=== PATIENT | female | born 1940 | race American Indian/Alaskan Native ===

== ENCOUNTER 2016-05-18 08:55 | Emergency (ER) | payer MEDICARE ==
--- NOTE | 2016-05-18 11:01 | Emergency Department Report ---
Chief Complaint: Headache Stated Complaint: POSS STROKE Time Seen by Provider: 05/18/16 09:58 - HPI History of Present Illness: Patient states that she had intermittent right sided BOWDEN over the last 2 weeks, worsened yesterday; denies N/V, photosensitivity and recent head injuries; H/O CVA 2014, not on blood thinners - ROS Review of Systems: Negative except those stated in HPI - Exam Vital Signs: Vital Signs 05/18/16 09:30 Temperature 97.5 F L Pulse Rate 64 Respiratory 16 Rate Blood Pressure 188/79 O2 Sat by Pulse 100 Oximetry Physical Exam: Left sided facial droop, residual PERRLA, EOMI bilaterallly; mild weakness in left arm, residual MSE screening note: Focused history and physical exam performed. Due to findings the following was ordered: CBC, CMP, CT head, Patient to be seen in Main ED ED Disposition for MSE Condition: Stable
--- NOTE | 2016-05-18 11:23 | Cat Scan Report ---
CT scan of head without contrast: Compared to 11/17/15. History: Headache. History of stroke. Findings: Ventricles are normal in size and midline in location. Focal area of low attenuation in the right basal ganglia with dilatation of the adjacent lateral ventricle suggestive of chronic ischemia. Ill-defined focal area of low attenuation in the right posterior temporal region. Measures approximately 4 cm in diameter. Moderate volume loss. No significant interval change. No evidence of hemorrhage. No extra-axial fluid collection. Normal sinuses and mastoid air cells. Impression: Chronic ischemic changes. No acute intracranial abnormality.No hemorrhage.
[2016-05-18 11:41] LABS: Hematocrit 36.9 % (30.3-42.9); Hemoglobin 11.9 gm/dl (10.1-14.3); Mean Corpuscular HGB Conc 32 % (30-34); Mean Corpuscular Hemoglobin 28 pg (28-32); Mean Corpuscular Volume 86 fl (79-97); Platelet Count 258 K/mm3 (140-440); Red Cell Distribution Width 13.7 % (13.2-15.2); White Blood Count 5.7 K/mm3 (4.5-11.0)
[2016-05-18 12:50] LABS: Alanine Aminotransferase 7 units/L (7-56); Albumin 4.1 g/dL (3.9-5); Albumin/Globulin Ratio 1.5 %; Alkaline Phosphatase 97 units/L (35-129); Anion Gap 17 mmol/L; Bilirubin,Total 0.4 mg/dL (0.1-1.2); Blood Urea Nitrogen 12 mg/dL (7-17); Calcium 9.4 mg/dL (8.4-10.2); Carbon Dioxide 27 mmol/L (22-30); Chloride 103.8 mmol/L (98-107); Glucose 111 mg/dL (65-100); Potassium 3.5 mmol/L (3.6-5.0); Sodium 144 mmol/L (137-145); Total Protein 6.9 g/dL (6.3-8.2)
[2016-05-18] MEDS ORDERED: APRESOLINE ONE (15:43)
[2016-05-18] MEDS ORDERED: APRESOLINE IV ONE (16:01)
[2016-05-18] MEDS ORDERED: REGLAN IV ONE (16:51)
[2016-05-18] MEDS ORDERED: TORADOL IV ONE (16:52)
[2016-05-18] MEDS ORDERED: BENADRYL IV ONE (16:52)
--- NOTE | 2016-05-18 17:00 | Emergency Department Report ---
HPI - General Chief Complaint: Headache Time Seen by Provider: 05/18/16 15:54 - HPI HPI: The patient is a 75-year-old female with a history of hypertension, whom presents for evaluation of headache. The patient reports constantly for the past 2 days, pounding in quality, 10/10 in severity, exacerbated by turning of the head. The patient denies trauma to the head, fever, head injury, neck pain, neck stiffness, vision or hearing changes, smell or taste changes, paresthesias , facial drooping, slurred speech, seizure-like activity, urine or bowel incontinence or retention, or other focal neurological deficit. ED Past Medical Hx - Past Medical History Previous Medical History?: Yes Hx Hypertension: Yes (x 15 years) Hx Diabetes: Yes (x 12 years) Hx Arthritis: Yes Hx Headaches / Migraines: Yes Hx Seizures: Yes (09/2014 caused by stroke) - Surgical History Past Surgical History?: Yes Hx Coronary Stent: Yes (between 8241-5065) Hx Cholecystectomy: Yes - Social History Smoking Status: Never Smoker Substance Use Type: None - Medications Home Medications: Home Medications Medication Instructions Recorded Confirmed Last Taken Type AtorvaSTATin [Lipitor] 40 mg PO BID 10/20/15 12/21/15 12/21/15 History Brimonidine 0.15% [Alphagan P 1 drops OP Q8H 10/20/15 12/21/15 12/21/15 History 0.15%] Furosemide 20 mg PO BID 10/20/15 12/21/15 12/21/15 History Insulin Aspart [NovoLOG 100 0 unit SQ AC PRN 10/20/15 12/21/15 11/16/15 History UNITS/ML VIAL] Lisinopril 40 mg PO QDAY 10/20/15 12/21/15 12/22/15 06:00 History Nebivolol (Nf) [Bystolic (Nf)] 5 mg PO QDAY 10/20/15 12/21/15 12/22/15 06:00 History Omeprazole (Nf) [PriLOSEC (Nf)] 20 mg PO QDAY 10/20/15 12/21/15 12/21/15 History hydrALAZINE [Apresoline TAB] 25 mg PO BID 10/20/15 12/21/15 12/22/15 06:00 History levETIRAcetam [Keppra TAB] 500 mg PO BID 10/20/15 12/22/15 12/22/15 06:00 History Potassium Chloride 20 meq PO DAILY #30 tablet.er 11/19/15 12/21/15 12/21/15 Rx Sitagliptin Phosphate [Januvia] 1 tab PO DAILY 12/22/15 12/22/15 12/21/15 History Acetaminophen/Codeine [Tylenol #3] 1 tab PO Q6H PRN #15 tab 05/18/16 Unknown Rx ED Review of Systems ROS: Stated complaint: POSS STROKE Other details as noted in HPI Constitutional: denies: fever ENT: denies: throat or neck pain Respiratory: denies: cough, shortness of breath Cardiovascular: denies: chest pain Endocrine: denies unexplained weight loss or gain Gastrointestinal: denies: abdominal pain, nausea Genitourinary: denies: dysuria Musculoskeletal: denies: leg swelling Skin: denies: rash Neurological: reports headache Hematological/Lymphatic: denies: easy bleeding or easy bruising Psych: denies sadness or hopelessness Physical Exam - Physical Exam Vital Signs: Vital Signs 05/18/16 05/18/16 05/18/16 09:30 15:24 15:30 Temperature 97.5 F L Pulse Rate 64 66 73 Respiratory 16 15 16 Rate Blood Pressure 188/79 212/77 Blood Pressure [Left] O2 Sat by Pulse 100 100 100 Oximetry 05/18/16 05/18/16 05/18/16 15:40 15:50 15:58 Temperature 98.3 F Pulse Rate 65 66 67 Respiratory 11 L 19 17 Rate Blood Pressure 212/77 212/77 Blood Pressure 212/77 [Left] O2 Sat by Pulse 100 100 98 Oximetry 05/18/16 05/18/16 05/18/16 15:59 16:00 16:10 Temperature Pulse Rate 76 74 Respiratory 17 19 13 Rate Blood Pressure 185/70 185/70 Blood Pressure [Left] O2 Sat by Pulse 98 100 100 Oximetry 05/18/16 05/18/16 05/18/16 16:20 16:30 16:40 Temperature Pulse Rate 80 91 H 86 Respiratory 21 18 16 Rate Blood Pressure 185/60 185/80 185/80 Blood Pressure [Left] O2 Sat by Pulse 100 99 100 Oximetry Physical Exam: General: well-nourished, well-developed, no acute distress Head: Normocephalic, atraumatic Eyes: normal sclera, PERRL, EOM intact, no nystagmus ENT: Mucous membranes are pink and moist Neck: trachea midline, neck supple, No neck stiffness, no cervical adenopathy Respiratory: Breath sounds equal bilaterally, no wheezing, rales, or rhonchi Cardio: S1 and S2 present, no murmurs, rubs, gallops, capillary refill is brisk Abdomen: Normoactive bowel sounds, soft abdomen, no rigidity, no guarding or rebound tenderness Musc: No pitting edema Skin: No rash Neuro: alert oriented x4, normal cognition, speech normal, no facial drooping, no uvula or tongue deviation on protrusion, no deficit with rotation of neck or shoulder shrug, no obvious gross motor deficit in the upper or lower extremities with flexion or extension at the shoulder, elbow, wrist, hip, knee, or ankle bilaterally, no obvious gross sensation deficit, 2+ symmetric reflexes on DTR testing, no coordination deficit with [id number] or [id number] testing, Babinski downgoing Psych: Normal affect ED Course Vital Signs 05/18/16 05/18/16 05/18/16 09:30 15:24 15:30 Temperature 97.5 F L Pulse Rate 64 66 73 Respiratory 16 15 16 Rate Blood Pressure 188/79 212/77 Blood Pressure [Left] O2 Sat by Pulse 100 100 100 Oximetry 05/18/16 05/18/16 05/18/16 15:40 15:50 15:58 Temperature 98.3 F Pulse Rate 65 66 67 Respiratory 11 L 19 17 Rate Blood Pressure 212/77 212/77 Blood Pressure 212/77 [Left] O2 Sat by Pulse 100 100 98 Oximetry 05/18/16 05/18/16 05/18/16 15:59 16:00 16:10 Temperature Pulse Rate 76 74 Respiratory 17 19 13 Rate Blood Pressure 185/70 185/70 Blood Pressure [Left] O2 Sat by Pulse 98 100 100 Oximetry 05/18/16 05/18/16 05/18/16 16:20 16:30 16:40 Temperature Pulse Rate 80 91 H 86 Respiratory 21 18 16 Rate Blood Pressure 185/60 185/80 185/80 Blood Pressure [Left] O2 Sat by Pulse 100 99 100 Oximetry ED Medical Decision Making - Lab Data Result diagrams: 05/18/16 11:30 05/18/16 11:30 - Medical Decision Making The patient was seen and examined by myself. The patient is placed on a counsel and continuous pulse ox. On initial evaluation, the patient was found to be in no distress. Evaluation orders were placed. IV access is established and the patient is given IV Reglan, Benadryl, and IV Toradol for her pain. She declined IV fluids for treatment of dehydration. Lab results were not concerning. CT scan of the head is negative for acute intracranial disease process. The patient was reevaluated and reported that their symptoms were markedly improved. The patient is stable for discharge with outpatient follow-up. The patient is given follow-up and return instructions. The patient expressed understanding and agreed with the plan. The patient is discharged in stable condition. Critical care attestation.: If time is entered above; I have spent that time in minutes in the direct care of this critically ill patient, excluding procedure time. ED Disposition Clinical Impression: Acute non intractable tension-type headache, Dehydration Disposition: DISCHARGED TO HOME OR SELFCARE Is pt being admited?: No Does the pt Need Aspirin: No Condition: Stable Instructions: Migraine Headache (ED), Acute Headache (ED) Referrals: UJS CRUZ MD [Primary Care Provider] - 3-5 Days Time of Disposition: 16:53
[2016-05-18 17:28] VITALS: BP 166/66
== END 2016-05-18 17:30 | disposition home or self-care (01) ==
LOC: ED 08:55
DX: G44.209 Tension-type headache, unspecified, not intractable (principal); E86.0 Dehydration; I10 Essential (primary) hypertension; E11.9 Type 2 diabetes mellitus without complications; M19.90 Unspecified osteoarthritis, unspecified site; R56.9 Unspecified convulsions; Z79.4 Long term (current) use of insulin
CPT/HCPCS: 36415; 70450; 80053; 85027; 93005; 93010; 96374; 96375; 99284; J0360; J1200; J1885; J2765

== ENCOUNTER 2017-02-04 12:39 | Emergency (ER) | payer MEDICARE ==
[2017-02-04 15:00] LABS: Basophils % (Auto) 1.3 % (0.0-1.8); Eosinophils % (Auto) 1.4 % (0.0-4.3); Hematocrit 35.7 % (30.3-42.9); Hemoglobin 11.6 gm/dl (10.1-14.3); Mean Corpuscular HGB Conc 33 % (30-34); Mean Corpuscular Hemoglobin 27 pg (28-32); Mean Corpuscular Volume 84 fl (79-97); Platelet Count 253 K/mm3 (140-440); Red Blood Count 4.25 M/mm3 (3.65-5.03); Red Cell Distribution Width 13.3 % (13.2-15.2); White Blood Count 7.8 K/mm3 (4.5-11.0)
[2017-02-04 15:04] LABS: Bilirubin,Urine NEG (Negative); Blood,Urine NEG (Negative); Ketones,Urine NEG (Negative); Leukocyte Esterase,Urine NEG (Negative); Nitrite,Urine NEG (Negative); Protein,Urine <15 mg/dL mg/dL (Negative); Urobilinogen,Urine < 2.0 mg/dL (<2.0)
[2017-02-04 15:15] LABS: Anion Gap 15 mmol/L; BUN/Creatinine Ratio 15; Blood Urea Nitrogen 9 mg/dL (7-17); Carbon Dioxide 28 mmol/L (22-30); Chloride 99.6 mmol/L (98-107); Glucose 285 mg/dL (65-100); Potassium 3.7 mmol/L (3.6-5.0); Sodium 139 mmol/L (137-145)
--- NOTE | 2017-02-04 17:26 | Emergency Department Report ---
ED General Adult HPI - General Chief complaint: Hyperglycemia Stated complaint: HBP/HBS Source: patient, EMS Mode of arrival: Stretcher Limitations: No Limitations - History of Present Illness Initial comments: Pt is a 76 yo female sent here for elevated blood glucose that the pt states was checked twice. Pt states initially, it was 500 then rechecked and found to be 600. Pt denied any complaints. Pt states she was sent here due to here due to the blood sugar. pt states that she had been eating extra sweets and drinking Sprite over the . - Related Data Home Medications Medication Instructions Recorded Confirmed Last Taken AtorvaSTATin [Lipitor] 40 mg PO DAILY 10/20/15 02/04/17 12/21/15 Furosemide 20 mg PO DAILY 10/20/15 02/04/17 12/21/15 Nebivolol (Nf) [Bystolic (Nf)] 5 mg PO QDAY 10/20/15 02/04/17 12/22/15 06:00 hydrALAZINE [Apresoline TAB] 100 mg PO BID 10/20/15 02/04/17 12/22/15 06:00 Sitagliptin Phosphate [Januvia] 1 tab PO DAILY 12/22/15 02/04/17 12/21/15 Clopidogrel [Plavix] 75 mg PO DAILY 02/04/17 02/04/17 Unknown Fluticasone [Flonase] 1 spray INTRANASAL DAILY 02/04/17 02/04/17 Unknown HYDROcodone/ACETAMINOPHEN 1 tab PO BID PRN 02/04/17 02/04/17 Unknown [Hydrocodon-Acetaminophen 5-325] Loratadine 10 mg PO DAILY 02/04/17 02/04/17 Unknown Ranitidine HCl [Acid Control] 150 mg PO BID 02/04/17 02/04/17 Unknown Valsartan [Diovan] 320 mg PO DAILY 02/04/17 02/04/17 Unknown glipiZIDE [glipiZIDE ER] 10 mg PO QHS 02/04/17 02/04/17 Unknown Previous Rx's Medication Instructions Recorded Last Taken Type Potassium Chloride 20 meq PO DAILY #30 tablet.er 11/19/15 12/21/15 Rx Allergies Allergy/AdvReac Type Severity Reaction Status Date / Time No Known Allergies Allergy Unverified 02/04/17 14:03 ED Review of Systems ROS: Stated complaint: HBP/HBS Other details as noted in HPI ED Past Medical Hx - Past Medical History Previous Medical History?: Yes Hx Hypertension: Yes (x 15 years) Hx CVA: Yes Hx Diabetes: Yes (x 12 years) Hx Arthritis: Yes Hx Headaches / Migraines: Yes Hx Seizures: Yes (09/2014 caused by stroke) - Surgical History Past Surgical History?: Yes Hx Coronary Stent: Yes (between 3860-4361) Hx Cholecystectomy: Yes - Social History Smoking Status: Never Smoker Substance Use Type: None - Medications Home Medications: Home Medications Medication Instructions Recorded Confirmed Last Taken Type AtorvaSTATin [Lipitor] 40 mg PO DAILY 10/20/15 02/04/17 12/21/15 History Furosemide 20 mg PO DAILY 10/20/15 02/04/17 12/21/15 History Nebivolol (Nf) [Bystolic (Nf)] 5 mg PO QDAY 10/20/15 02/04/17 12/22/15 06:00 History hydrALAZINE [Apresoline TAB] 100 mg PO BID 10/20/15 02/04/17 12/22/15 06:00 History Potassium Chloride 20 meq PO DAILY #30 tablet.er 11/19/15 02/04/17 12/21/15 Rx Sitagliptin Phosphate [Januvia] 1 tab PO DAILY 12/22/15 02/04/17 12/21/15 History Clopidogrel [Plavix] 75 mg PO DAILY 02/04/17 02/04/17 Unknown History Fluticasone [Flonase] 1 spray INTRANASAL DAILY 02/04/17 02/04/17 Unknown History HYDROcodone/ACETAMINOPHEN 1 tab PO BID PRN 02/04/17 02/04/17 Unknown History [Hydrocodon-Acetaminophen 5-325] Loratadine 10 mg PO DAILY 02/04/17 02/04/17 Unknown History Ranitidine HCl [Acid Control] 150 mg PO BID 02/04/17 02/04/17 Unknown History Valsartan [Diovan] 320 mg PO DAILY 02/04/17 02/04/17 Unknown History glipiZIDE [glipiZIDE ER] 10 mg PO QHS 02/04/17 02/04/17 Unknown History ED Physical Exam - General Limitations: No Limitations - Eye Eye exam: Present: normal appearance - ENT ENT exam: Present: mucous membranes moist - Respiratory Respiratory exam: Present: normal lung sounds bilaterally. Absent: respiratory distress, wheezes - Cardiovascular Cardiovascular Exam: Present: regular rate, normal rhythm, normal heart sounds - GI/Abdominal GI/Abdominal exam: Present: soft. Absent: distended, tenderness, guarding - Neurological Exam Neurological exam: Present: alert, oriented X3, CN II-XII intact - Psychiatric Psychiatric exam: Present: normal affect, normal mood - Skin Skin exam: Present: warm, dry, intact ED Course Vital Signs 02/04/17 02/04/17 02/04/17 13:11 13:31 13:56 Temperature 97.4 F L Pulse Rate 60 Respiratory 16 Rate Blood Pressure 184/81 217/80 O2 Sat by Pulse 98 98 99 Oximetry 02/04/17 02/04/17 02/04/17 14:01 14:05 14:31 Temperature Pulse Rate Respiratory 16 Rate Blood Pressure 202/85 209/71 O2 Sat by Pulse 98 99 98 Oximetry 02/04/17 02/04/17 02/04/17 15:01 15:31 16:01 Temperature Pulse Rate Respiratory Rate Blood Pressure 191/70 197/81 209/79 O2 Sat by Pulse 98 98 96 Oximetry ED Medical Decision Making - Lab Data Result diagrams: 02/04/17 14:45 02/04/17 14:45 Critical care attestation.: If time is entered above; I have spent that time in minutes in the direct care of this critically ill patient, excluding procedure time. ED Disposition Condition: Stable Referrals: JUS CRUZ MD [Primary Care Provider] - 3-5 Days
[2017-02-04 18:32] VITALS: BP 200/68
== END 2017-02-04 19:07 | disposition home or self-care (01) ==
LOC: ED 12:39
DX: E11.65 Type 2 diabetes mellitus with hyperglycemia (principal); Z86.73 Personal history of transient ischemic attack (TIA), and cerebral infarction without residual deficits; I10 Essential (primary) hypertension; M19.90 Unspecified osteoarthritis, unspecified site; G43.909 Migraine, unspecified, not intractable, without status migrainosus; R56.9 Unspecified convulsions
CPT/HCPCS: 36415; 80048; 81001; 82805; 82962; 85025; 96374; J1815

== ENCOUNTER 2019-01-16 19:30 | Emergency (ER) | payer MEDICARE ==
--- NOTE | 2019-01-16 21:27 | XRay Report ---
CHEST 1 VIEW INDICATION / CLINICAL INFORMATION: htn. COMPARISON: None available. FINDINGS: SUPPORT DEVICES: None. HEART / MEDIASTINUM: No significant abnormality. LUNGS / PLEURA: No significant pulmonary or pleural abnormality. No pneumothorax. ADDITIONAL FINDINGS: No significant additional findings. IMPRESSION: 1. No acute findings. Signer Name: Brennon Reyes MD Signed: 01/16/2019 9:23 PM Workstation Name: [id number]
[2019-01-16 21:49] LABS: Basophils # (Auto) 0.1 K/mm3 (0.0-0.1); Eosinophils # (Auto) 0.1 K/mm3 (0.0-0.4); Eosinophils % (Auto) 1.6 % (0.0-4.3); Hemoglobin 10.7 gm/dl (10.1-14.3); Lymphocytes # (Auto) 2.1 K/mm3 (1.2-5.4); Lymphocytes % (Auto) 27.3 % (13.4-35.0); Mean Corpuscular HGB Conc 32 % (30-34); Mean Corpuscular Volume 85 fl (79-97); Monocytes # (Auto) 0.5 K/mm3 (0.0-0.8); Monocytes % (Auto) 6.9 % (0.0-7.3); Platelet Count 291 K/mm3 (140-440); Red Blood Count 3.87 M/mm3 (3.65-5.03); Red Cell Distribution Width 14.9 % (13.2-15.2)
--- NOTE | 2019-01-16 21:56 | Cat Scan Report ---
CT BRAIN: 01/16/2019 INDICATION / CLINICAL INFORMATION: Stroke symptoms. COMPARISON: 11/12/2017 FINDINGS: BRAIN/INTRACRANIAL STRUCTURES: Unenhanced CT images of the brain were obtained and compared to the pr ior exam from 11/12/2017. There has been no change. Again seen is the right parietal cortical encephalomalacia consistent with prior ischemic injury. Underlying prominent diffuse cerebral atrophy, extensive chronic white matter hypoattenuation, and ev idence of more focal right subcortical ischemic change in the region of the basal ganglia and umana radiata are again noted. Note is also made of prior left cerebellar ischemic injury There is no CT evidence of acute large vessel territory ischemic injury, hemorrhage, or mass. There a re no abnormal extra-axial fluid collections. EXTRACRANIAL STRUCTURES: Unremarkable. IMPRESSION: No acute abnormality. Chronic ischemic and age-related changes. All CT scans at this location are performed using dose reduction to ALARA by means of automated expos ure control. Signer Name: Donovan Anna MD Signed: 01/16/2019 9:52 PM Workstation Name: [id number]
[2019-01-16 21:59] LABS: INR 0.89 (0.87-1.13)
[2019-01-16 22:01] LABS: Partial Thromboplastin Time 31.2 Sec. (24.2-36.6); Thrombin Time 17.3 Sec. (15.1-19.6)
[2019-01-16 22:09] LABS: Creatine Kinase MB 1.4 ng/mL (0.0-4.0)
[2019-01-16 22:11] LABS: BUN/Creatinine Ratio 21; Blood Urea Nitrogen 17 mg/dL (7-17); Calcium 9.1 mg/dL (8.4-10.2); Hemolysis Index 3
[2019-01-16 22:12] LABS: Alanine Aminotransferase 8 units/L (7-56); Albumin 3.9 g/dL (3.9-5)
[2019-01-16 22:14] LABS: Bilirubin,Direct < 0.2 mg/dL (0-0.2)
[2019-01-17 03:13] VITALS: BP 180/64
[2019-01-17] MEDS ORDERED: ACETAMINOPHEN 325 MG TAB PO ONE (03:25)
--- NOTE | 2019-01-17 03:28 | Emergency Department Report ---
ED General Adult HPI - General Chief complaint: Neuro Symptoms/Deficit Stated complaint: POSSIBLE CVA Time Seen by Provider: 01/16/19 20:54 Source: patient, EMS ( EMS documentation not available at time of chart dictation ), RN notes reviewed, old records reviewed Mode of arrival: Stretcher Limitations: Physical Limitation - History of Present Illness Initial comments: During the history and physical, I am chaperoned by nurse Teresita Beaver This is a 78-year-old female. She has a past history of hypertension, stroke, left-sided weakness, diabetes, seizure, disability, and lives on her own. She is brought to the hospital by family and EMS. Apparently, the patient was sitting in a recliner, and she went to get up, referred slipped, and she landed, and think she hit her head. She has chronic left-sided weakness. She makes no, that her weakness is new, worsened or different. There is no complaint of facial droop. She complains of midline headache. She makes no complaint of visual loss. She denies neck pain, chest pain, abdominal pain. She has left- sided thigh pain. She endorses dysuria. -: Sudden Location: head, left, lower extremity Severity scale (0 -10): 0 Quality: aching Consistency: intermittent Improves with: none Worsens with: none - Related Data Home Medications Medication Instructions Recorded Confirmed Last Taken AtorvaSTATin [Lipitor] 40 mg PO DAILY 10/20/15 11/13/17 12/21/15 Nebivolol (Nf) [Bystolic (Nf)] 5 mg PO QDAY 10/20/15 11/13/17 12/22/15 06:00 Previous Rx's Medication Instructions Recorded Last Taken Type Acetaminophen [Acetaminophen TAB] 650 mg PO Q4H PRN #30 tablet 05/19/17 Unknown Rx Fluticasone [Flonase] 1 spray INTRANASAL DAILY #1 05/19/17 Unknown Rx Furosemide [Lasix TAB] 20 mg PO DAILY #30 tablet 05/19/17 Unknown Rx Insulin NPH/Regular [NovoLIN 70/30] 25 unit SUB-Q BIDDIAB #30 units 05/19/17 Unknown Rx Lispro Insulin [HumaLOG] 1 dose SQ AC PRN #1 vial 05/19/17 Unknown Rx Valsartan [Diovan] 320 mg PO DAILY #30 05/19/17 Unknown Rx Aspirin [Aspirin BABY CHEW TAB] 81 mg PO QAM #30 tab.chew 05/22/17 Unknown Rx Clopidogrel [Plavix] 75 mg PO QHS #30 tablet 05/22/17 Unknown Rx Famotidine [Pepcid] 20 mg PO BID #60 tablet 05/22/17 Unknown Rx Allergies Allergy/AdvReac Type Severity Reaction Status Date / Time No Known Allergies Allergy Unverified 02/04/17 14:03 ED Review of Systems ROS: Stated complaint: POSSIBLE CVA Other details as noted in HPI Constitutional: malaise. denies: fever Eyes: denies: eye discharge ENT: denies: congestion Respiratory: denies: wheezing Cardiovascular: denies: syncope Genitourinary: dysuria Musculoskeletal: arthralgia, myalgia Skin: denies: lesions Neurological: headache, weakness (chronic), abnormal gait (chronic) ED Past Medical Hx - Past Medical History Hx Hypertension: Yes Hx CVA: Yes Hx Heart Attack/AMI: No Hx Congestive Heart Failure: No Hx Diabetes: Yes Hx Deep Vein Thrombosis: No Hx Liver Disease: No Hx Arthritis: Yes Hx Headaches / Migraines: Yes Hx Seizures: Yes Hx Dementia: Yes - Surgical History Hx Coronary Stent: Yes Hx Pacemaker: No Hx Internal Defibrillator: No Hx Cholecystectomy: Yes Additional Surgical History: hernia repair - Social History Smoking Status: Never Smoker - Medications Home Medications: Home Medications Medication Instructions Recorded Confirmed Last Taken Type AtorvaSTATin [Lipitor] 40 mg PO DAILY 10/20/15 11/13/17 12/21/15 History Nebivolol (Nf) [Bystolic (Nf)] 5 mg PO QDAY 10/20/15 11/13/17 12/22/15 06:00 History Acetaminophen [Acetaminophen TAB] 650 mg PO Q4H PRN #30 tablet 05/19/17 11/13/17 Unknown Rx Fluticasone [Flonase] 1 spray INTRANASAL DAILY #1 05/19/17 11/13/17 Unknown Rx Furosemide [Lasix TAB] 20 mg PO DAILY #30 tablet 05/19/17 11/13/17 Unknown Rx Insulin NPH/Regular [NovoLIN 70/30] 25 unit SUB-Q BIDDIAB #30 units 05/19/17 11/13/17 Unknown Rx Lispro Insulin [HumaLOG] 1 dose SQ AC PRN #1 vial 03/11/18 09/05/18 Unknown Rx Valsartan [Diovan] 320 mg PO DAILY #30 05/19/17 11/13/17 Unknown Rx Aspirin [Aspirin BABY CHEW TAB] 81 mg PO QAM #30 tab.chew 05/22/17 11/13/17 Unknown Rx Clopidogrel [Plavix] 75 mg PO QHS #30 tablet 05/22/17 11/13/17 Unknown Rx Famotidine [Pepcid] 20 mg PO BID #60 tablet 05/22/17 11/13/17 Unknown Rx ED Physical Exam - General Limitations: Physical Limitation General appearance: alert, in no apparent distress - Head Head exam: Present: atraumatic, normocephalic - Eye Eye exam: Present: normal appearance (evidence of bilateral cataract surgeries appreciated), EOMI, other (visual acuity intact to finger counting, color perception, reading at a close distance). Absent: nystagmus - ENT ENT exam: Present: normal exam, normal orophraynx, mucous membranes moist, normal external ear exam - Neck Neck exam: Present: normal inspection, full ROM. Absent: tenderness, meningismus - Respiratory Respiratory exam: Present: normal lung sounds bilaterally. Absent: respiratory distress - Cardiovascular Cardiovascular Exam: Present: regular rate, normal rhythm, normal heart sounds. Absent: bradycardia, tachycardia, irregular rhythm, systolic murmur, diastolic murmur, rubs, gallop - GI/Abdominal GI/Abdominal exam: Present: soft. Absent: distended, tenderness, guarding, rebound, rigid, pulsatile mass - Extremities Exam Extremities exam: Present: normal inspection (chaperoned by nurse Teresita Beaver. There is left medial thigh tenderness. There is no redness, pus or streaking. There is no palpable cord. There is a negative Homans sign. The pelvis is stable.), pedal edema, other (2+ pulses noted in the bilateral upper, lower extremities. There is no long bone tenderness. Musculoskeletal compartments are soft. The pelvis is stable.). Absent: calf tenderness - Back Exam Back exam: Present: normal inspection - Neurological Exam Neurological exam: Present: alert, oriented X3, motor sensory deficit (there is chronic left arm and left leg weakness.), other (there is no facial droop. The tongue is midline. Extraocular movements are intact bilaterally. Speaking in full sentences. Sensation is intact to light touch in 4 extremities.) - Psychiatric Psychiatric exam: Present: normal affect, normal mood - Skin Skin exam: Present: warm, dry, intact, normal color. Absent: rash ED Course Vital Signs 01/16/19 01/16/19 01/16/19 19:59 20:34 20:46 Temperature Pulse Rate 66 63 Respiratory 17 14 Rate Blood Pressure 178/66 Blood Pressure 194/66 [Left] O2 Sat by Pulse 99 99 99 Oximetry 01/16/19 01/16/19 01/16/19 21:00 21:16 21:42 Temperature Pulse Rate 65 68 70 Respiratory 16 16 17 Rate Blood Pressure 194/70 198/68 199/74 Blood Pressure [Left] O2 Sat by Pulse 98 99 99 Oximetry 01/16/19 01/16/19 01/16/19 21:46 22:00 22:16 Temperature Pulse Rate 72 66 68 Respiratory 19 19 15 Rate Blood Pressure 211/64 211/64 190/72 Blood Pressure [Left] O2 Sat by Pulse 98 98 100 Oximetry 01/16/19 01/16/19 01/16/19 22:30 22:46 23:00 Temperature Pulse Rate 69 61 64 Respiratory 14 17 17 Rate Blood Pressure 190/72 200/97 200/97 Blood Pressure [Left] O2 Sat by Pulse 99 100 100 Oximetry 01/16/19 01/16/19 01/17/19 23:16 23:30 00:01 Temperature Pulse Rate 58 L 80 60 Respiratory 17 14 16 Rate Blood Pressure 183/65 183/65 193/72 Blood Pressure [Left] O2 Sat by Pulse 99 99 99 Oximetry 01/17/19 01/17/19 01/17/19 00:31 00:45 00:49 Temperature 98.2 F Pulse Rate 58 L 53 L 67 Respiratory 17 14 16 Rate Blood Pressure 154/57 154/57 201/99 Blood Pressure [Left] O2 Sat by Pulse 97 99 96 Oximetry 01/17/19 01/17/19 01/17/19 01:01 01:15 01:31 Temperature Pulse Rate 54 L 56 L 55 L Respiratory 14 12 13 Rate Blood Pressure 158/57 158/57 162/60 Blood Pressure [Left] O2 Sat by Pulse 96 100 98 Oximetry 01/17/19 01/17/19 01/17/19 01:45 02:01 02:15 Temperature Pulse Rate 52 L 54 L 54 L Respiratory 14 13 13 Rate Blood Pressure 162/60 154/51 154/51 Blood Pressure [Left] O2 Sat by Pulse 99 97 99 Oximetry 01/17/19 01/17/19 01/17/19 02:31 02:45 03:01 Temperature Pulse Rate 55 L 55 L 53 L Respiratory 13 14 13 Rate Blood Pressure 167/55 167/55 180/64 Blood Pressure [Left] O2 Sat by Pulse 97 99 99 Oximetry - Reevaluation(s) Reevaluation #1: 01/17/19 04:07 Differential diagnosis, including not limited to: Mechanical fall, intracranial injury, urinary tract infection, chronic disability, chronic left-sided hemiparesis Assessment and plan: 78-year-old female with chronic left-sided weakness with a primary complaint of slipping out of her recliner, and not being able to get up. Family corroborates that she is neurologically at her baseline. She is clinically sober at this time, with a GCS of 15. Screening laboratory studies unremarkable. Noncontrast CT scan of the brain negative for acute disease. Very unlikely to be a fracture or dislocation. Urinalysis pending, x-ray the chest is negative, x-ray of the pelvis, and left femur pending. Patient makes no complaint of new or different weakness, and family also does not make any c omplaint of new or different weakness. As per family, the patient reportedly lives by herself. I think is the family to be more active in the patient's care, and help with her activities of daily living, and a case management consultation physical therapy evaluation have been ordered. This can be followed up as an outpatient. Reevaluation #2: 01/17/19 04:47 Urinalysis negative. X-rays negative. Resting comfortably, and in no acute distress. Medically suitable for discharge at this point in time in addition, making indicating she would like to leave 01/17/19 05:36 ED Medical Decision Making - Lab Data Result diagrams: 01/16/19 21:31 01/16/19 21:31 Vital Signs 01/16/19 01/16/19 01/16/19 19:59 20:34 20:46 Temperature Pulse Rate 66 63 Respiratory 17 14 Rate Blood Pressure 178/66 Blood Pressure 194/66 [Left] O2 Sat by Pulse 99 99 99 Oximetry 01/16/19 01/16/19 01/16/19 21:00 21:16 21:42 Temperature Pulse Rate 65 68 70 Respiratory 16 16 17 Rate Blood Pressure 194/70 198/68 199/74 Blood Pressure [Left] O2 Sat by Pulse 98 99 99 Oximetry 01/16/19 01/16/19 01/16/19 21:46 22:00 22:16 Temperature Pulse Rate 72 66 68 Respiratory 19 19 15 Rate Blood Pressure 211/64 211/64 190/72 Blood Pressure [Left] O2 Sat by Pulse 98 98 100 Oximetry 01/16/19 01/16/19 01/16/19 22:30 22:46 23:00 Temperature Pulse Rate 69 61 64 Respiratory 14 17 17 Rate Blood Pressure 190/72 200/97 200/97 Blood Pressure [Left] O2 Sat by Pulse 99 100 100 Oximetry 01/16/19 01/16/19 01/17/19 23:16 23:30 00:01 Temperature Pulse Rate 58 L 80 60 Respiratory 17 14 16 Rate Blood Pressure 183/65 183/65 193/72 Blood Pressure [Left] O2 Sat by Pulse 99 99 99 Oximetry 01/17/19 01/17/19 01/17/19 00:31 00:45 00:49 Temperature 98.2 F Pulse Rate 58 L 53 L 67 Respiratory 17 14 16 Rate Blood Pressure 154/57 154/57 201/99 Blood Pressure [Left] O2 Sat by Pulse 97 99 96 Oximetry 01/17/19 01/17/19 01/17/19 01:01 01:15 01:31 Temperature Pulse Rate 54 L 56 L 55 L Respiratory 14 12 13 Rate Blood Pressure 158/57 158/57 162/60 Blood Pressure [Left] O2 Sat by Pulse 96 100 98 Oximetry 01/17/19 01/17/19 01/17/19 01:45 02:01 02:15 Temperature Pulse Rate 52 L 54 L 54 L Respiratory 14 13 13 Rate Blood Pressure 162/60 154/51 154/51 Blood Pressure [Left] O2 Sat by Pulse 99 97 99 Oximetry 01/17/19 01/17/19 01/17/19 02:31 02:45 03:01 Temperature Pulse Rate 55 L 55 L 53 L Respiratory 13 14 13 Rate Blood Pressure 167/55 167/55 180/64 Blood Pressure [Left] O2 Sat by Pulse 97 99 99 Oximetry Lab Results 01/16/19 01/16/19 01/16/19 Range/Units 21:31 21:31 21:31 WBC 7.8 (4.5-11.0) K/mm3 RBC 3.87 (3.65-5.03) M/mm3 Hgb 10.7 (10.1-14.3) gm/dl Hct 33.0 (30.3-42.9) % MCV 85 (79-97) fl MCH 28 (28-32) pg MCHC 32 (30-34) % RDW 14.9 (13.2-15.2) % Plt Count 291 (140-440) K/mm3 Lymph % (Auto) 27.3 (13.4-35.0) % Polk % (Auto) 6.9 (0.0-7.3) % Eos % (Auto) 1.6 (0.0-4.3) % Baso % (Auto) 1.0 (0.0-1.8) % Lymph # 2.1 (1.2-5.4) K/mm3 Polk # 0.5 (0.0-0.8) K/mm3 Eos # 0.1 (0.0-0.4) K/mm3 Baso # 0.1 (0.0-0.1) K/mm3 Seg Neutrophils % 63.2 (40.0-70.0) % Seg Neutrophils # 4.9 (1.8-7.7) K/mm3 PT 12.0 L (12.2-14.9) Sec. INR 0.89 (0.87-1.13) APTT 31.2 (24.2-36.6) Sec. Thrombin Time 17.3 (15.1-19.6) Sec. Sodium 141 (137-145) mmol/L Potassium 3.6 (3.6-5.0) mmol/L Chloride 105.5 (98-107) mmol/L Carbon Dioxide 24 (22-30) mmol/L Anion Gap 15 mmol/L BUN 17 (7-17) mg/dL Creatinine 0.8 (0.7-1.2) mg/dL Estimated GFR > 60 ml/min BUN/Creatinine Ratio 21 % Glucose 128 H (65-100) mg/dL Calcium 9.1 (8.4-10.2) mg/dL Magnesium (1.7-2.3) mg/dL Total Bilirubin (0.1-1.2) mg/dL Direct Bilirubin (0-0.2) mg/dL Indirect Bilirubin mg/dL AST (5-40) units/L ALT (7-56) units/L Alkaline Phosphatase (35-129) units/L Total Creatine Kinase 68 (30-135) units/L CK-MB (CK-2) 1.4 (0.0-4.0) ng/mL CK-MB (CK-2) Rel Index 2.0 (0-4) Troponin T < 0.010 (0.00-0.029) ng/mL NT-Pro-B Natriuret Pep (0-900) pg/mL Total Protein (6.3-8.2) g/dL Albumin (3.9-5) g/dL Albumin/Globulin Ratio % 01/16/19 01/16/19 Range/Units 21:31 21:31 WBC (4.5-11.0) K/mm3 RBC (3.65-5.03) M/mm3 Hgb (10.1-14.3) gm/dl Hct (30.3-42.9) % MCV (79-97) fl MCH (28-32) pg MCHC (30-34) % RDW (13.2-15.2) % Plt Count (140-440) K/mm3 Lymph % (Auto) (13.4-35.0) % Polk % (Auto) (0.0-7.3) % Eos % (Auto) (0.0-4.3) % Baso % (Auto) (0.0-1.8) % Lymph # (1.2-5.4) K/mm3 Polk # (0.0-0.8) K/mm3 Eos # (0.0-0.4) K/mm3 Baso # (0.0-0.1) K/mm3 Seg Neutrophils % (40.0-70.0) % Seg Neutrophils # (1.8-7.7) K/mm3 PT (12.2-14.9) Sec. INR (0.87-1.13) APTT (24.2-36.6) Sec. Thrombin Time (15.1-19.6) Sec. Sodium (137-145) mmol/L Potassium (3.6-5.0) mmol/L Chloride (98-107) mmol/L Carbon Dioxide (22-30) mmol/L Anion Gap mmol/L BUN (7-17) mg/dL Creatinine (0.7-1.2) mg/dL Estimated GFR ml/min BUN/Creatinine Ratio % Glucose (65-100) mg/dL Calcium (8.4-10.2) mg/dL Magnesium 2.10 (1.7-2.3) mg/dL Total Bilirubin 0.20 (0.1-1.2) mg/dL Direct Bilirubin < 0.2 (0-0.2) mg/dL Indirect Bilirubin 0.0 mg/dL AST 11 (5-40) units/L ALT 8 (7-56) units/L Alkaline Phosphatase 122 (35-129) units/L Total Creatine Kinase 66 (30-135) units/L CK-MB (CK-2) (0.0-4.0) ng/mL CK-MB (CK-2) Rel Index (0-4) Troponin T (0.00-0.029) ng/mL NT-Pro-B Natriuret Pep 523.1 (0-900) pg/mL Total Protein 6.9 (6.3-8.2) g/dL Albumin 3.9 (3.9-5) g/dL Albumin/Globulin Ratio 1.3 % - EKG Data -: EKG Interpreted by [facility] - EKG Data 01/17/19 04:10 The EKG today shows motion artifact. This is a sinus rhythm, 61 beats for minute, normal axis, QTC is 462 ms, premature ventricular contractions are noted, the EKG is abnormal, it is not consistent with ST elevation myocardial infarction. The EKG today appears to be unchanged from prior EKG from 06/2017. - Radiology Data Radiology results: report reviewed, image reviewed Noncontrast CT scan of the brain is negative for acute disease. Chronic findings noted. X-ray the chest is negative for acute disease. Critical care attestation.: If time is entered above; I have spent that time in minutes in the direct care of this critically ill patient, excluding procedure time. ED Disposition Clinical Impression: Physical deconditioning, Fall Disposition: DC- TO HOME OR SELFCARE Is pt being admited?: No Does the pt Need Aspirin: No Condition: Stable Additional Instructions: Continue current outpatient medications. Follow-up with the primary care doctor within the next week. Return to emergency room right away with new, worsened, different symptoms, symptoms not present on the initial emergency room evaluation. When following up with patient's primary care doctor, make sure to ask about home health aide, and physical therapy. Referrals: [facility] [Provider Group] - 3-5 Days [facility] [Provider Group] - 3-5 Days
[2019-01-17 04:24] LABS: Bilirubin,Urine NEG (Negative); Blood,Urine NEG (Negative); Color,Urine Yellow (Yellow); Protein,Urine <15 mg/dL mg/dL (Negative); RBC,Urine < 1.0 /HPF (0.0-6.0); Urobilinogen,Urine < 2.0 mg/dL (<2.0)
--- NOTE | 2019-01-17 04:33 | XRay Report ---
PELVIS, SINGLE VIEW INDICATION / CLINICAL INFORMATION: fall left leg pain. COMPARISON: None available. FINDINGS: No obvious pelvic fracture is noted. Radiograph is somewhat limited due to body habitus. No dislocati on. IMPRESSION: No obvious fracture of the pelvis identified. Signer Name: Uma Patrick MD Signed: 01/17/2019 4:29 AM Workstation Name: [id number]
--- NOTE | 2019-01-17 04:34 | XRay Report ---
LEFT FEMUR, 6 VIEWS INDICATION / CLINICAL INFORMATION: fall left leg pain. COMPARISON: None available. FINDINGS: No fracture of the left femur is identified. The left hip is better visualized and I do not see any c onvincing evidence for left hip fracture. No dislocation. No obvious effusion noted in the suprapatel lar bursa of the knee. IMPRESSION: No evidence of left femoral fracture or dislocation. Signer Name: Uma Patrick MD Signed: 01/17/2019 4:30 AM Workstation Name: [employer]
== END 2019-01-17 05:47 | disposition home or self-care (01) ==
LOC: ED 19:30
DX: R53.81 Other malaise (principal); I10 Essential (primary) hypertension; E11.9 Type 2 diabetes mellitus without complications; G43.909 Migraine, unspecified, not intractable, without status migrainosus; M19.90 Unspecified osteoarthritis, unspecified site; Z79.899 Other long term (current) drug therapy; Z79.4 Long term (current) use of insulin; Z79.82 Long term (current) use of aspirin; Z79.01 Long term (current) use of anticoagulants
CPT/HCPCS: 36415; 70450; 71045; 72170; 80048; 80076; 81001; 82550; 82553; 83735; 83880; 84484; 85025; 85610; 85670; 85730; 93005; 93010; 99285